=== PATIENT | male | born 1975 | race Caucasian/White ===

== ENCOUNTER → 2019-05-27 | Outpatient (CLI) | payer BC, SELFPAY ==
[2019-05-27 13:07] LABS: CRP, High Sensitivity Cardiac 0.54 mg/L
[2019-05-28 14:58] LABS: CHOLESTEROL TOTAL 245 mg/dL (100-199); HDL-C 43 mg/dL (>39); HDL-P TOTAL 35.5 umol/L (>=30.5); SMALL LDL-P 1386 nmol/L (<=527); TRIGLYCERIDES 148 mg/dL (0-149)
[2019-05-28 15:42] LABS: INSULIN RESISTANCE SCORE 76 (<=45); LDL SIZE 20.6 nm (>20.5); LDL-C 172 mg/dL (0-99); LDL-P 2264 nmol/L (<1000)
== END | disposition home or self-care (01) ==
LOC: MFPLAB 10:19
PROVIDERS: Family Provider Family Medicine; PCP Family Medicine; Referring Provider Family Medicine; Visit Provider Family Medicine
DX: E78.5 Hyperlipidemia, unspecified (principal)
CPT/HCPCS: 36415; 80061; 83704; 86141

== ENCOUNTER → 2019-08-07 08:25 | Outpatient (CLI) | payer OTHER, SELFPAY ==
[2019-08-07 10:01] LABS: AST(SGOT) 21 U/L (15-37); Alanine Aminotransfer ALT/SGPT 38 U/L (16-61); Albumin, Serum 4.1 g/dL (3.2-5.0); Alkaline Phosphatase 42 U/L (45-117); Bilirubin, Direct 0.11 mg/dL (0.00-0.30); Cholesterol 212 mg/dL (200); Globulin 3.3 g/dL (2.2-4.2); High Density Lipoprotein 38 mg/dL; Protein, Total 7.4 g/dL (6.4-8.2); Triglycerides 377 mg/dL; Very Low Density Lipoprotein 75 mg/dL (5-40)
== END ==
PROVIDERS: PCP Family Medicine; Referring Provider Family Medicine; Visit Provider Family Medicine
DX: E78.5 Hyperlipidemia, unspecified (principal)
CPT/HCPCS: 36415; 80061; 80076

== ENCOUNTER → 2020-02-04 | Outpatient (CLI) | payer OTHER, SELFPAY ==
[2020-02-04 11:19] LABS: AST(SGOT) 19 U/L (15-37); Alanine Aminotransfer ALT/SGPT 36 U/L (16-61); Albumin, Serum 3.8 g/dL (3.2-5.0); Alkaline Phosphatase 48 U/L (45-117); Bilirubin, Direct 0.12 mg/dL (0.00-0.30); Cholesterol 203 mg/dL (200); Globulin 3.3 g/dL (2.2-4.2); High Density Lipoprotein 34 mg/dL; Protein, Total 7.1 g/dL (6.4-8.2); Triglycerides 455 mg/dL
== END | disposition home or self-care (01) ==
LOC: MTLAB 07:12
PROVIDERS: PCP Family Medicine; Referring Provider Family Medicine; Visit Provider Family Medicine
DX: E78.5 Hyperlipidemia, unspecified (principal)
CPT/HCPCS: 36415; 80061; 80076

== ENCOUNTER → 2020-12-06 09:39 | Outpatient (CLI) | payer OTHER, SELFPAY ==
[2020-12-06 13:13] LABS: ALB/GLOB Ratio 1.2 RATIO (0.9-2.4); AST(SGOT) 23 U/L (15-37); Alanine Aminotransfer ALT/SGPT 30 U/L (16-61); Albumin, Serum 4.1 g/dL (3.2-5.0); Alkaline Phosphatase 45 U/L (45-117); Anion Gap 5 (5-15); BUN 16 mg/dL (7-18); BUN/Creat Ratio 16.5 RATIO (10-20); Calcium,Total 8.8 mg/dL (8.5-10.1); Chloride 105 mmol/L (98-107); Cholesterol 205 mg/dL (200); Creatinine, Serum 0.97 mg/dL (0.70-1.30); EST Glomerular Filtration Rate 90 mL/min (>60); Est Glom Filt Rate - Afr Amer 108 mL/min (>60); Globulin 3.4 g/dL (2.2-4.2); Glucose 89 mg/dL (74-106); High Density Lipoprotein 55 mg/dL; Potassium 3.9 mmol/L (3.5-5.1); Protein, Total 7.5 g/dL (6.4-8.2); Sodium Level 138 mmol/L (136-145); Thyroid Stim Hormone (TSH) 1.55 uIU/mL (0.358-3.74); Triglycerides 129 mg/dL; Very Low Density Lipoprotein 26 mg/dL (5-40)
== END ==
PROVIDERS: PCP Family Medicine; Visit Provider Family Medicine
DX: E78.1 Pure hyperglyceridemia (principal)
CPT/HCPCS: 36415; 80053; 80061; 84443

== ENCOUNTER 2021-03-08 23:46 | Emergency (ER) | payer OTHER, SELFPAY ==
--- NOTE | 2021-03-08 00:16 | RAD_ITS ---
STUDY: X-RAY CHEST REASON FOR EXAM: Male, 45 years old. chest pain TECHNIQUE: AP portable COMPARISON: None. FINDINGS: The lungs are clear and expanded. There is no demonstrated pleural abnormality. Normal size heart. Normal mediastinum and delmis. Normal visualized pulmonary arteries. Normal visualized aortic arch and descending thoracic aorta. Normal visualized thoracic spine. Normal visualized ribs, clavicles, and shoulders. There is no demonstrated abnormality of the visualized soft tissue structures of the upper abdomen. RAD/Chest 1 View (Portable) IMPRESSION: Normal x-ray examination of the chest. Electronically Signed: Agapito Olivas MD at 0:44 EDT Tel , Service support ,
[2021-03-08 23:47] VITALS: BP 149/83; PULSE 77; RESP 16; TEMP 36.3; O2SAT 97; BMI 33.7
--- NOTE | 2021-03-08 23:53 | EKG12_ITS ---
Test Reason : CP Blood Pressure : / mmHG Vent. Rate : 073 BPM Atrial Rate : 073 BPM P-R Int : 146 ms QRS Dur : 074 ms QT Int : 358 ms P-R-T Axes : 040 021 023 degrees QTc Int : 394 ms Normal sinus rhythm Normal ECG Confirmed by LISSET CARRIZALES, MANFRED ([id number]), offline editor TEO STONE ([id number]) on 03/14/2021 8:33:09 AM Referred By: ANÍBAL Confirmed By:MANFRED DARLING MD
--- NOTE | 2021-03-09 00:21 | ED.VIS.CHEST ---
HPI History of Present Illness Chief Complaint: Chest Pain Narrative Narrative: 45-year-old male with history of hyperlipidemia presenting with right-sided chest pain. He states this started prior to arrival and radiated to his right arm. He felt nauseous and lightheaded as well as a little bit sweaty. He states when he is at rest he does not have significant pain. He complains of pain with movement. Patient has no cardiac history. Patient states he does have a family history of early cardiac disease in the 50s. Patient has no history of DVT/PE. Patient does have a history of recent travel in December to [facility]. He states that initially went biplane however they did also drive around 2 different areas. He states that he spent several hours in the car in between places where he would hike. He does admit to hiking a lot. 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 PFSH PFSH Medical History Alcohol abuse Hyperlipidemia Non-smoker Home Medications fenofibrate 80 mg PO DAILY 03/08/21 [History Last Taken Unknown] Allergy/AdvReac Type Severity Reaction Status Date / Time No Known Allergies Allergy Verified 03/08/21 23:50 Social History Smoking Status: Never smoker ROS [facility] ED Constitutional Constitutional ED: Reports sweats; Denies chills or fever(s) Eyes Eyes: Denies blurry vision or change in vision ENT ENT ED: Denies rhinorrhea or sore throat Cardiovascular Cardiovascular: Reports chest pain, palpitations and racing heartbeat Respiratory/Chest Respiratory/Chest: Denies cough or dyspnea Gastrointestinal Gastrointestinal: Reports nausea; Denies abdominal pain or vomiting Genitourinary Genitourinary ED: Denies dysuria or hematuria Musculoskeletal Musculoskeletal: Denies arthralgias or myalgias Integumentary Denies abscess or rash Neurologic Neurologic: Denies headache(s) or paresthesias Psychiatric Psychiatric: Denies anxiety or depression EXAM Physical Exam Const Vital Signs: 03/08/21 23:47 03/08/21 23:51 03/09/21 01:58 Temperature 97.4 F L Temperature Source Temporal Pulse Rate 77 61 Respiratory Rate 16 14 Respiratory Effort Normal Blood Pressure 149/83 H 131/75 H Blood Pressure Mean 105 93 Pulse Ox 97 96 Oxygen Delivery Method Room Air Room Air 03/09/21 02:08 03/09/21 02:40 Temperature Temperature Source Pulse Rate 65 80 Respiratory Rate 14 16 Respiratory Effort Blood Pressure 127/68 H 126/64 H Blood Pressure Mean 87 Pulse Ox 96 96 Oxygen Delivery Method Room Air Positive well nourished General Appearance ED: NAD; Negative for pallor HEENT Reports moist mucous membranes normocephalic and atraumatic Eyes PERRL and EOMs intact bilaterally Resp normal respiratory effort Effort and Inspection: respiratory distress Cardio regular rate and regular rhythm GI normal to inspection, nondistended, normoactive bowel sounds Neuro oriented x3 Sensorium / Orientation: awake and alert Psych mental status grossly normal Skin no rashes or lesions noted and no wounds General Skin Exam: Negative for jaundice or pallor Heart Score History: Moderately Suspicious ECG: Normal Age: </= 45 years Risk Factors: 1 or 2 Risk Factors Score: 2 MDM MDM MDM Narrative Medical decision making narrative: Patient presenting with right-sided chest pain and radiation to the right arm. This occurred at rest. He admits to being lightheaded, nauseous, diaphoretic. He arrived by EMS and was given aspirin prior to arrival. EKG on my interpretation shows normal sinus rhythm ventricular rate of 73 bpm without signs of ischemic changes. Heart score pretesting is 2. Patient states he is currently pain-free and resting in bed. He declines analgesia. Chest x-ray on my interpretation shows no acute cardiopulmonary process and the radiologist does agree. Vital signs appear stable. While I was examining the patient his pulse ox did drop to 93% with good waveforms. I will obtain a cardiac work-up with D-dimer. Basic lab work is checked and is within normal limits. Troponin initially is 4.3 and delta troponin is 4.9. D-dimer is negative. Patient declined anything for pain but was given aspirin. He states his symptoms are improved currently. I counseled him that he had a negative work-up for cardiac sources as well as pulmonary emboli. He is comfortable with outpatient follow-up with his PCP. He is given return precautions. Impression: 1. Chest pain noncardiac Lab Data Labs: Laboratory Results - last 24 hr 03/08/21 03/08/21 03/09/21 23:52 23:52 01:40 WBC 5.2 RBC 5.05 Hgb 14.6 Hct 42.9 MCV 85.0 MCH 28.9 MCHC 34.0 RDW Std Deviation 38.3 RDW Coeff of Christa 12.5 Plt Count 218 MPV 9.6 Immature Gran % (Auto) 0.600 Neut % (Auto) 54.6 Lymph % (Auto) 34.4 Florence % (Auto) 7.7 Eos % (Auto) 2.3 Baso % (Auto) 0.4 Absolute Neuts (auto) 2.8 Absolute Lymphs (auto) 1.78 Nucleated RBC % 0 D-Dimer Quant (PE/DVT) <= 0.27 Sodium 139 Potassium 3.5 Chloride 105 Carbon Dioxide 26.0 Anion Gap 8 BUN 13 Creatinine 1.12 Estim Creat Clear Calc 73.98 Est GFR (MDRD) Af Amer 92 Est GFR (MDRD) Non-Af 76 BUN/Creatinine Ratio 11.6 Glucose 137 H Calcium 8.5 Troponin I High Sens 4.3 03/09/21 02:04 WBC RBC Hgb Hct MCV MCH MCHC RDW Std Deviation RDW Coeff of Christa Plt Count MPV Immature Gran % (Auto) Neut % (Auto) Lymph % (Auto) Florence % (Auto) Eos % (Auto) Baso % (Auto) Absolute Neuts (auto) Absolute Lymphs (auto) Nucleated RBC % D-Dimer Quant (PE/DVT) Sodium Potassium Chloride Carbon Dioxide Anion Gap BUN Creatinine Estim Creat Clear Calc Est GFR (MDRD) Af Amer Est GFR (MDRD) Non-Af BUN/Creatinine Ratio Glucose Calcium Troponin I High Sens 4.9 Radiography Diagnostic Testing: Radiology Impression Chest X-Ray 03/08/21 00:16 IMPRESSION: Normal x-ray examination of the chest. Electronically Signed: Agapito Olivas MD at 0:44 EDT Tel , Service support , Discharge Plan Triage Chief Complaint: Chest Pain ED Provider: Collins Buenrostro Dx/Rx/DC Orders Instructions: ED Chest Pain, Noncardiac Prescriptions: No Action fenofibrate 40 mg Tablet 80 mg PO DAILY RF: 0 Primary Care Provider: Lion Marino Referrals: Lion Marino MD [Primary Care Provider] - Disposition Disposition: Home, Self Care Discharge Date/Time: 03/09/21 02:44
[2021-03-09 00:23] LABS: Anion Gap 8 (5-15); BUN 13 mg/dL (7-18); BUN/Creat Ratio 11.6 RATIO (10-20); Calcium,Total 8.5 mg/dL (8.5-10.1); Chloride 105 mmol/L (98-107); Creatinine, Serum 1.12 mg/dL (0.70-1.30); EST Glomerular Filtration Rate 76 mL/min (>60); Est Glom Filt Rate - Afr Amer 92 mL/min (>60); Estimated Creatinine Clearance 73.98 ml/min; Glucose 137 mg/dL (74-106); Potassium 3.5 mmol/L (3.5-5.1); Sodium Level 139 mmol/L (136-145); Troponin-I HS 4.3 pg/mL (3.0-78.5)
[2021-03-09 00:27] LABS: Absolute Lymphocyte Count 1.78 X10^3/uL (0.83-4.51); Absolute Neutrophil Count 2.8 X10^3/uL (2.0-7.7); Basophil# 0.02 X10^3/uL; Basophil% 0.4 % (0-1); Eosinophil# 0.12 X10^3/uL; Eosinophils% 2.3 % (0-5); Hematocrit 42.9 % (40-54); Hemoglobin 14.6 g/dL (13.0-16.5); Lymphocyte # 1.78 X10^3/ul (0.83-4.51); Lymphocyte % 34.4 % (19-41); Mean Corpuscular Hgb 28.9 pg (27.0-32.0); Mean Platelet Vol. 9.6 fl (6.2-12.0); Monocyte% 7.7 % (0-10); NRBC Flagged by Analyzer 0 % (0-5); Neutrophil # 2.83 X10^3/uL (2.7-7.7); Neutrophil % 54.6 % (47-70); Platelet Count 218 K/mm3 (150-450); RBC Distribution Width CV 12.5 % (11.6-14.6); RBC Distribution Width SD 38.3 fl (35.1-43.9); Red Blood Count 5.05 M/mm3 (4.6-6.2); White Blood Count 5.2 K/mm3 (4.4-11.0)
[2021-03-09 01:58] VITALS: BP 131/75; PULSE 61; RESP 14; O2SAT 96
[2021-03-09 02:03] LABS: D-Dimer Quantitative (DVT/PE) <= 0.27 FEU/ug/m (0.27-0.49)
[2021-03-09 02:08] VITALS: BP 127/68; PULSE 65; RESP 14; O2SAT 96
[2021-03-09 02:35] LABS: Troponin-I HS 4.9 pg/mL (3.0-78.5)
[2021-03-09 02:40] VITALS: BP 126/64; PULSE 80; RESP 16; O2SAT 96
== END 2021-03-09 02:44 | disposition home or self-care (01) ==
PROVIDERS: Emergency Provider Student in an Organized Health Care Education/Training Program; PCP Family Medicine
DX: R07.89 Other chest pain (principal); E78.5 Hyperlipidemia, unspecified; Z79.899 Other long term (current) drug therapy
CPT/HCPCS: 71045; 80048; 84484; 85025; 85379; 93005; 99285; A4216

== ENCOUNTER → 2021-04-08 06:16 | Outpatient (CLI) | payer OTHER, SELFPAY ==
--- NOTE | 2021-04-08 14:30 | STRESSREP_ITS ---
Stress Test Report Exercise myocardial perfusion stress test. 45-year-old man with a history of chest pain. Stress protocol: Resting EKG demonstrates normal sinus rhythm with a rate of 68 bpm normal intervals are noted resting blood pressure is 124/88 mmHg. The patient exercised according to regular Ren protocol for a total duration of 10 minutes and 31 seconds. The maximum heart rate attained was 181 bpm which was 102% of max infected heart rate. Patient completed 1 minute and 30 seconds into stage IV of the Ren protocol. At rest there were no ST or T wave changes noted to suggest ischemia and at peak exercise no ST or T wave changes were noted suggest ischemia. No clinical angina was noted. Test was terminated due to the target heart rate being achieved. The peak blood pressure was 190/82 mmHg. Myocardial perfusion protocol. 12.0 mCi of technetium 99m sestamibi was injected at rest. The patient exercised regular Ren protocol and at peak exercise 35.0 mCi of technetium 99m sestamibi was injected. Stress and resting images were reconstructed and compared in the short axis vertical long and horizontal long axis. Gated images were also obtained. Perfusion SPECT analysis: Review of the images demonstrate normal uptake of tracer noted in all areas of the myocardium. The resting images similarly demonstrate normal uptake of t racer noted in all areas of the myocardium. No areas of reversibility are noted to suggest ischemia and no previous infarct is noted. Gated SPECT analysis: The gated ejection fraction is 70%. Conclusion: Normal exercise myocardial perfusion stress test. Preserved ejection fraction.
== END ==
PROVIDERS: PCP Family Medicine; Referring Provider Family Medicine; Visit Provider Family Medicine
DX: R07.89 Other chest pain (principal)
CPT/HCPCS: 78452; 93017; A9500; A4216

== ENCOUNTER 2021-09-27 07:45 | Outpatient (CLI) | payer OTHER, SELFPAY ==
[2021-09-27 10:43] LABS: AST(SGOT) 25 U/L (15-37); Alanine Aminotransfer ALT/SGPT 41 U/L (16-61); Albumin, Serum 3.9 g/dL (3.2-5.0); Alkaline Phosphatase 45 U/L (45-117); Cholesterol 201 mg/dL (200); Globulin 3.4 g/dL (2.2-4.2); High Density Lipoprotein 34 mg/dL; Protein, Total 7.3 g/dL (6.4-8.2); Triglycerides 542 mg/dL
== END 2021-09-27 23:59 | disposition home or self-care (01) ==
LOC: MTLAB 07:46
PROVIDERS: PCP Family Medicine; Referring Provider Family Medicine; Visit Provider Family Medicine
DX: E78.1 Pure hyperglyceridemia (principal)
CPT/HCPCS: 36415; 80061; 80076

== ENCOUNTER → 2022-05-29 | Outpatient (CLI) | payer OTHER, SELFPAY ==
[2022-05-29 13:15] LABS: AST(SGOT) 32 U/L (15-37); Alanine Aminotransfer ALT/SGPT 54 U/L (16-61); Alkaline Phosphatase 49 U/L (45-117); Bilirubin, Direct 0.17 mg/dL (0.00-0.30); Cholesterol 197 mg/dL (200); Globulin 3.6 g/dL (2.2-4.2); High Density Lipoprotein 40 mg/dL; Protein, Total 7.6 g/dL (6.4-8.2); Triglycerides 604 mg/dL
== END | disposition home or self-care (01) ==
LOC: MFPLAB 09:31
PROVIDERS: PCP Family Medicine; Referring Provider Family Medicine; Visit Provider Family Medicine
DX: E78.5 Hyperlipidemia, unspecified (principal)
CPT/HCPCS: 36415; 80061; 80076

== ENCOUNTER → 2023-06-07 | Outpatient (CLI) | payer BC, SELFPAY ==
[2023-06-07 10:38] LABS: ALB/GLOB Ratio 1.1 RATIO (0.9-2.4); AST(SGOT) 24 U/L (15-37); Alanine Aminotransfer ALT/SGPT 41 U/L (16-61); Alkaline Phosphatase 49 U/L (45-117); Anion Gap 4 (5-15); BUN 11 mg/dL (7-18); BUN/Creat Ratio 9.8 RATIO (10-20); Calcium,Total 9.3 mg/dL (8.5-10.1); Chloride 105 mmol/L (98-107); Cholesterol 199 mg/dL (200); Creatinine, Serum 1.12 mg/dL (0.70-1.30); EST Glomerular Filtration Rate 75 mL/min (>60); Est Glom Filt Rate - Afr Amer 91 mL/min (>60); Globulin 3.5 g/dL (2.2-4.2); Glucose 104 mg/dL (74-106); High Density Lipoprotein 37 mg/dL; Potassium 3.9 mmol/L (3.5-5.1); Protein, Total 7.5 g/dL (6.4-8.2); Sodium Level 140 mmol/L (136-145); Thyroid Stim Hormone (TSH) 1.57 uIU/mL (0.358-3.74); Triglycerides 352 mg/dL; Very Low Density Lipoprotein 70 mg/dL (5-40)
== END | disposition home or self-care (01) ==
PROVIDERS: PCP Family Medicine; Referring Provider Family Medicine; Visit Provider Family Medicine
DX: E78.5 Hyperlipidemia, unspecified (principal)
CPT/HCPCS: 36415; 80053; 80061; 84443

== ENCOUNTER → 2024-03-25 | Outpatient (CLI) | payer BC, SELFPAY ==
--- NOTE | 2024-03-25 09:15 | RAD_ITS ---
STUDY: X-RAY - RIGHT HAND REASON FOR EXAM: Male, 48 years old. Pain, swelling. TECHNIQUE: 3 views of the right hand. COMPARISON: None. FINDINGS: Normal radiocarpal articulation. Normal distal radioulnar joint. Normal visualized carpal bones. Normal carpal articulations. Normal carpometacarpal articulation of the thumb. Normal second through fifth carpometacarpal joints. Normal metacarpi. Normal metacarpophalangeal joint of the thumb. Normal interphalangeal joint of the thumb. Normal proximal and distal phalanges of the thumb. Normal metacarpophalangeal joints of the second through fifth fingers. Normal proximal and distal interphalangeal joints of the second through fifth fingers. Normal phalanges of the second through fifth fingers. The soft tissue structures are unremarkable. RAD/Hand Min 3 Views IMPRESSION: Unremarkable x-ray examination of the hand. Electronically Signed: Du Storey MD at 9:47 EDT ,
[2024-03-25 12:31] LABS: Absolute Neutrophil Count 2.7 X10^3/uL (2.0-7.7); Basophil# 0.04 X10^3/uL; Basophil% 0.9 % (0-1); Eosinophil# 0.09 X10^3/uL; Eosinophils% 1.9 % (0-5); Hematocrit 41.9 % (40-54); Hemoglobin 14.1 g/dL (13.0-16.5); Mean Corp Hgb Conc 33.7 g/dL (32-36); Mean Corpuscular Hgb 28.7 pg (27.0-32.0); Mean Corpuscular Volume 85.2 fL (80-94); Mean Platelet Vol. 10.4 fl (6.2-12.0); Monocyte# 0.47 X10^3/uL; Monocyte% 10.1 % (0-10); NRBC Flagged by Analyzer 0 % (0-5); Neutrophil # 2.71 X10^3/uL (2.7-7.7); Neutrophil % 58.5 % (47-70); Platelet Count 256 K/mm3 (150-450); RBC Distribution Width CV 12.2 % (11.6-14.6); RBC Distribution Width SD 37.7 fl (35.1-43.9); Red Blood Count 4.92 M/mm3 (4.6-6.2); White Blood Count 4.6 K/mm3 (4.4-11.0)
[2024-03-25 12:33] LABS: Erythrocyte Sedimentation Rate 7 mm/hr (0-20)
[2024-03-25 12:44] LABS: ALB/GLOB Ratio 1.3 RATIO (0.9-2.4); AST(SGOT) 18 U/L (15-37); Alanine Aminotransfer ALT/SGPT 37 U/L (16-61); Albumin, Serum 3.9 g/dL (3.2-5.0); Alkaline Phosphatase 47 U/L (45-117); Anion Gap 4 (5-15); BUN 11 mg/dL (7-18); BUN/Creat Ratio 11.1 RATIO (10-20); CRP < 2.90 mg/L (0.0-3.0); Calcium,Total 9.4 mg/dL (8.5-10.1); Chloride 105 mmol/L (98-107); Cholesterol 149 mg/dL (200); Creatinine, Serum 0.99 mg/dL (0.70-1.30); EST Glomerular Filtration Rate 86 mL/min (>60); Est Glom Filt Rate - Afr Amer 104 mL/min (>60); Globulin 3.1 g/dL (2.2-4.2); Glucose 100 mg/dL (74-106); High Density Lipoprotein 37 mg/dL; Potassium 4.1 mmol/L (3.5-5.1); Rheumatoid Factor < 10.0 IU/mL (<15); Sodium Level 139 mmol/L (136-145); Thyroid Stim Hormone (TSH) 0.716 uIU/mL (0.358-3.740); Triglycerides 183 mg/dL; Uric Acid 7.5 mg/dL (3.5-7.2); Very Low Density Lipoprotein 37 mg/dL (5-40)
[2024-03-26 14:09] LABS: ANTINUCLEAR ANTIBODIES DIRECT Negative (Negative)
== END | disposition home or self-care (01) ==
PROVIDERS: PCP Family Medicine; Referring Provider Family Medicine; Visit Provider Family Medicine
DX: R10.9 Unspecified abdominal pain (principal); E78.5 Hyperlipidemia, unspecified; M79.643 Pain in unspecified hand; M79.89 Other specified soft tissue disorders
CPT/HCPCS: 36415; 73130; 80053; 80061; 84443; 84550; 85025; 85652; 86038; 86140; 86431

== ENCOUNTER → 2025-01-16 | Outpatient (CLI) | payer BC, SELFPAY ==
--- OUTSIDE RECORDS SUMMARY | 2025-01-16 07:02 | XMS RPT_ITS | CCD ---
Author Organization [facility] Care Team Providers Care Contract Negotiation Manager Name Role Phone Agapito Marrero Attending Unavailable Agapito Marrero Referring Unavailable Agapito Marrero Primary Care Unavailable Agapito Marrero Attending Unavailable Agapito Marrero Referring Unavailable Agapito Marrero Primary Care Unavailable Medications Current Medications Medication Drug Class(es) Dates Sig (Normalized) Sig (Original) fenofibrate 40 mg oral tablet (2 sources) Peroxisome Proliferator Receptor alpha Agonist Start: 03-08-2021 take 80 mg by mouth once daily Fenofibrate Active 80 MG PO DAILY March 07, 2021 11:00pm Problems Problem Classification Problem Date Documented Da te Episodic/Chronic Abdominal pain (1 source) Unspecified abdominal pain; Translations: [Unspecified abdominal pain] Onset: 04-11-2024 Episodic Disorders of lipid metabolism (1 source) Hyperlipidemia, unspecified; Translations: [Hyperlipidemia, unspecified] Onset: 2023 Chronic Results Test Name Value Interpretation Reference Range Facility ANTINUCLEAR ANTIBODIES DIREC Ton 03-26-2024 ALVINO,DIRECT Negative Normal Negative [facility] Comment on above: Order Comment: Order Date: 06/05/23 Order Info: 0786-1 - CMP Order Info: [id number] - LIPID Order Info: 3016-3 - TSH Result Comment: Perf ormed at: CB - [facility] [address] [id number] Market Master: Darrel Barrera PhD, Phone: [phone] Performed By: #### L 067.7991, P562.5907 #### [facility] [address] [place], [address] CBC W/Diff, Automatedon 090 Absolute Lymph 1.30 X10 3/uL Normal 0.83-4.51 [facility] Comment on above: Order Comment: Order Date: 03/20/24 Order Info: 183-07 - CBCD Order Info: 05413-2 - SED Performed By: #### L 500.4050, L3100.5475, L101.9900, L501.6710, L501.9520, L505.7010, L501.1400, L500.4100, L100.0100 #### [facility] [address] [place], [address] Absolute Neut 2.7 X10 3/uL Normal 2.0-7.7 [facility] Comment on above: Order Comment: Order Date: 03/20/24 Order Info: 183-07 - CBCD Order Info: 45153-0 - SED Performed By: #### L 500.4050, L3100.5475, L101.9900, L501.6710, L501.9520, L505.7010, L501.1400, L500.4100, L100.0100 #### [facility] [address] [place], [place], [phone] ([phone] Basophils/100 WBC (Bld) 0.9 % Normal 0-1 [facility] Comment on above: Order Comment: Order Date: 03/20/24 Order Info: 183-07 - CBCD Order Info: 11786-9 - SED Performed By: #### L 500.4050, L3100.5475, L101.9900, L501.6710, L501.9520, L505.7010, L501.1400, L500.4100, L100.0100 #### [facility] [address] [place], [address] Eosinophils/100 WBC (Bld) 1.9 % Normal 0-5 [facility] Comment on above: Order Comment: Order Date: 03/20/24 Order Info: 183-07 - CBCD Order Info: 22025-8 - SED Performed By: #### L 500.4050, L3100.5475, L101.9900, L501.6710, L501.9520, L505.7010, L501.1400, L500.4100, L100.0100 #### [facility] [address] [place], [address] Erythrocyte distribution width (RBC) [Ratio] 12.2 % Normal 11.6-14.6 [facility] Comment on above: Order Comment: Order Date: 03/20/24 Order Info: 183-07 - CBCD Order Info: 13943-6 - SED Performed By: #### L 500.4050, L3100.5475, L101.9900, L501.6710, L501.9520, L505.7010, L501.1400, L500.4100, L100.0100 #### [facility] [address] [place], [address] Hematocrit (Bld) [Volume fraction] 41.9 % Normal 40-54 [facility] Comment on above: Order Comment: Order Date: 03/20/24 Order Info: 183-07 - CBCD Order Info: 78506-7 - SED Performed By: #### L 500.4050, L3100.5475, L101.9900, L501.6710, L501.9520, L505.7010, L501.1400, L500.4100, L100.0100 #### [facility] [address] [place], [place], [phone] (763) Hemoglobin (Bld) [Mass/Vol] 14.1 g/dL Normal 13.0-16.5 [facility] Comment on above: Order Comment: Order Date: 03/20/24 Order Info: 01810-21 - CBCD Order Info: 96063-6 - SED Performed By: #### L 500.4050, L3100.5475, L101.9900, L501.6710, L501.9520, L505.7010, L501.1400, L500.4100, L100.0100 #### [facility] [address] [place], [address] IG% 0.600 Normal 0.0-0.9 [facility] Comment on above: Order Comment: Order Date: 03/20/24 Order Info: 01810-21 - CBCD Order Info: 76893-4 - SED Result Comment: IG% - Immature Granulocytes (promyelocytes, myelocytes and metamyelocytes) > 1% indicates that a LEFT SHIFT is Present. Performed By: #### L 500.4050, L3100.5475, L101.9900, L501.6710, L501.9520, L505.7010, L501.1400, L500.4100, L100.0100 #### [facility] [address] [place], [address] Lymphocytes/100 WBC (Bld) 28.0 % Normal 19-41 [facility] Comment on above: Order Comment: Order Date: 03/20/24 Order Info: 183-07 - CBCD Order Info: 07353-3 - SED Performed By: #### L 500.4050, L3100.5475, L101.9900, L501.6710, L501.9520, L505.7010, L501.1400, L500.4100, L100.0100 #### [facility] [address] [place], [address] MCH (RBC) [Entitic mass] 28.7 pg Normal 27.0-32.0 [facility] Comment on above: Order Comment: Order Date: 03/20/24 Order Info: 01810-21 - CBCD Order Info: 35189-9 - SED Performed By: #### L 500.4050, L3100.5475, L101.9900, L501.6710, L501.9520, L505.7010, L501.1400, L500.4100, L100.0100 #### [facility] [address] [place], [address] MCHC (RBC) [Mass/Vol] 33.7 g/dL Normal 32-36 [facility] Comment on above: Order Comment: Order Date: 03/20/24 Order Info: 183-07 - CBCD Order Info: 59038-2 - SED Performed By: #### L 500.4050, L3100.5475, L101.9900, L501.6710, L501.9520, L505.7010, L501.1400, L500.4100, L100.0100 #### [facility] [address] [place], [address] MCV (RBC) [Entitic vol] 85.2 fL Normal 80-94 [facility] Comment on above: Order Comment: Order Date: 03/20/24 Order Info: 183-07 - CBCD Order Info: 82039-8 - SED Performed By: #### L 500.4050, L3100.5475, L101.9900, L501.6710, L501.9520, L505.7010, L501.1400, L500.4100, L100.0100 #### [facility] [address] [place], [address] Monocytes/100 WBC (Bld) 10.1 % High 0-10 [facility] Comment on above: Order Comment: Order Date: 03/20/24 Order Info: 183-07 - CBCD Order Info: 74492-0 - SED Performed By: #### L 500.4050, L3100.5475, L101.9900, L501.6710, L501.9520, L505.7010, L501.1400, L500.4100, L100.0100 #### [facility] [address] [place], [address] Neutrophils/100 WBC (Bld) 58.5 % Normal 47-70 [facility] Comment on above: Order Comment: Order Date: 03/20/24 Order Info: 01810-21 - CBCD Order Info: 43513-3 - SED Performed By: #### L 500.4050, L3100.5475, L101.9900, L501.6710, L501.9520, L505.7010, L501.1400, L500.4100, L100.0100 #### [facility] [address] [place], [address] Nucleated RBC (Bld) [#/Vol] 0 10*3/uL Normal 0-5 [facility] Comment on above: Order Comment: Order Date: 03/20/24 Order Info: 018- - CBCD Order Info: 44075-8 - SED Performed By: #### L 500.4050, L3100.5475, L101.9900, L501.6710, L501.9520, L505.7010, L501.1400, L500.4100, L100.0100 #### [facility] [address] [place], [place], [phone] (140) Platelet mean volume (Bld) [Entitic vol] 10.4 fL Normal 6.2-12.0 [facility] Comment on above: Order Comment: Order Date: 03/20/24 Order Info: 018- - CBCD Order Info: 29114-8 - SED Performed By: #### L 500.4050, L3100.5475, L101.9900, L501.6710, L501.9520, L505.7010, L501.1400, L500.4100, L100.0100 #### [facility] [address] [place], [address] Platelets (Bld) [#/Vol] 256 10*3/uL Normal 150-450 [facility] Comment on above: Order Comment: Order Date: 03/20/24 Order Info: 0184- - CBCD Order Info: 84093-2 - SED Performed By: #### L 500.4050, L3100.5475, L101.9900, L501.6710, L501.9520, L505.7010, L501.1400, L500.4100, L100.0100 #### [facility] [address] [place], [place], [phone] RBC (Bld) [#/Vol] 4.92 10*6/uL Normal 4.6-6.2 [facility] Comment on above: Order Comment: Order Date: 03/20/24 Order Info: 183-07 - CBCD Order Info: 76697-9 - SED Performed By: #### L 500.4050, L3100.5475, L101.9900, L501.6710, L501.9520, L505.7010, L501.1400, L500.4100, L100.0100 #### [facility] [address] [place], [place], [phone] RDW SD 37.7 fl Normal 35.1-43.9 [facility] Comment on above: Order Comment: Order Date: 03/20/24 Order Info: 183-07 - CBCD Order Info: 82337-7 - SED Performed By: #### L 500.4050, L3100.5475, L101.9900, L501.6710, L501.9520, L505.7010, L501.1400, L500.4100, L100.0100 #### [facility] [address] [place], [place], [phone] WBC (Bld) [#/Vol] 4.6 10*3/uL Normal 4.4-11.0 [facility] Comment on above: Order Comment: Order Date: 03/20/24 Order Info: 01810-21 - CBCD Order Info: 07304-5 - SED Performed By: #### L 500.4050, L3100.5475, L101.9900, L501.6710, L501.9520, L505.7010, L501.1400, L500.4100, L100.0100 #### [facility] [address] [place], [address] CRPon 03-25-2024 C-REACTIVE PROT < 2.90 Normal 0.0-3.0 [facility] Comment on above: Order Comment: Order Date: 03/20/24 Order Info: 0786-1 - CMP Order Info: 10987-5 - LIPID Order Info: 3083-07 - URIC Order Info: 08771-8 - CRP Order Info: 3015-09 - TSH Order Info: 98828-7 - RA Result Comment: C-Re active Protein (CRP) provides useful information for the diagnosis, therapy and monitoring of inflammatory processes and associated diseases. For the evaluation of Relative Risk for Cardiovascular Disease, a High Sensitivity CRP (HSCRP) should be ordered. Performed By: #### L 500.4050, L3100.5475, L101.9900, L501.6710, L501.9520, L505.7010, L501.1400, L500.4100, L100.0100 #### [facility] [address] [place], [place], [phone] Comprehensive Metabolic Prof ilon 03-25-2024 Albumin [Mass/Vol] 3.9 g/dL Normal 3.2-5.0 [facility] Comment on above: Order Comment: Order Date: 03/20/24 Order Info: 07- - CMP Order Info: - LIPID Order Info: 3083-07 - URIC Order Info: - CRP Order Info: 3015-09 - TSH Order Info: 83628-9 - RA Performed By: #### L 500.4050, L3100.5475, L101.9900, L501.6710, L501.9520, L505.7010, L501.1400, L500.4100, L100.0100 #### [facility] [address] [place], [address] Albumin/Globulin [Mass ratio] 1.3 {ratio} Normal 0.9-2.4 [facility] Comment on above: Order Comment: Order Date: 03/20/24 Order Info: 0786-1 - CMP Order Info: 85722-7 - LIPID Order Info: 3084-1 - URIC Order Info: 58038-5 - CRP Order Info: 3015-09 - TSH Order Info: 10325-1 - RA Performed By: #### L 500.4050, L3100.5475, L101.9900, L501.6710, L501.9520, L505.7010, L501.1400, L500.4100, L100.0100 #### [facility] [address] [place], [place], [phone] ALK P 47 U/L Normal 45-117 [facility] Comment on above: Order Comment: Order Date: 03/20/24 Order Info: 785- - CMP Order Info: - LIPID Order Info: 3083-07 - URIC Order Info: 23011-7 - CRP Order Info: 3 - TSH Order Info: 08650-2 - RA Performed By: #### L 500.4050, L3100.5475, L101.9900, L501.6710, L501.9520, L505.7010, L501.1400, L500.4100, L100.0100 #### [facility] [address] [place], [place], [phone] ALT [Catalytic activity/Vol] 37 U/L Normal 16-61 [facility] Comment on above: Order Comment: Order Date: 03/20/24 Order Info: 785-07 - CMP Order Info: - LIPID Order Info: 3083-07 - URIC Order Info: 40001-3 - CRP Order Info: 3 - TSH Order Info: 76940-7 - RA Performed By: #### L 500.4050, L3100.5475, L101.9900, L501.6710, L501.9520, L505.7010, L501.1400, L500.4100, L100.0100 #### [facility] [address] [place], [place], [phone] AST [Catalytic activity/Vol] 18 U/L Normal 15-37 [facility] Comment on above: Order Comment: Order Date: 03/20/24 Order Info: 785-1 - CMP Order Info: - LIPID Order Info: 3083-07 - URIC Order Info: 75419-1 - CRP Order Info: 3015-09 - TSH Order Info: 67773-1 - RA Performed By: #### L 500.4050, L3100.5475, L101.9900, L501.6710, L501.9520, L505.7010, L501.1400, L500.4100, L100.0100 #### [facility] [address] [place], [place], [phone] Bilirubin [Mass/Vol] 0.60 mg/dL Normal 0.20-1.00 [facility] Comment on above: Order Comment: Order Date: 03/20/24 Order Info: 785- - CMP Order Info: - LIPID Order Info: 3083-07 - URIC Order Info: 26672-7 - CRP Order Info: 3015-09 - TSH Order Info: 80831-1 - RA Result Comment: For patients on eltrombopag therapy, use of Dimension [place] TBIL is not recommended. Performed By: #### L 500.4050, L3100.5475, L101.9900, L501.6710, L501.9520, L505.7010, L501.1400, L500.4100, L100.0100 #### [facility] [address] [place], [place], [phone] (204) BUN/CRE 11.1 RATIO Normal 10-20 [facility] Comment on above: Order Comment: Order Date: 03/20/24 Order Info: 785-07 - CMP Order Info: - LIPID Order Info: 3083-07 - URIC Order Info: 29779-3 - CRP Order Info: 3015-09 - TSH Order Info: 97457-2 - RA Performed By: #### L 500.4050, L3100.5475, L101.9900, L501.6710, L501.9520, L505.7010, L501.1400, L500.4100, L100.0100 #### [facility] [address] [place], [place], [phone] (557) CA,Total 9.4 mg/dL Normal 8.5-10.1 [facility] Comment on above: Order Comment: Order Date: 03/20/24 Order Info: 785- - CMP Order Info: - LIPID Order Info: 3083-07 - URIC Order Info: 20999-2 - CRP Order Info: 3015-09 - TSH Order Info: 02326-3 - RA Performed By: #### L 500.4050, L3100.5475, L101.9900, L501.6710, L501.9520, L505.7010, L501.1400, L500.4100, L100.0100 #### [facility] [address] [place], [place], [phone] Chloride [Moles/Vol] 105 mmol/L Normal 98-107 [facility] Comment on above: Order Comment: Order Date: 03/20/24 Order Info: 785-07 - CMP Order Info: - LIPID Order Info: 3083-07 - URIC Order Info: 03652-9 - CRP Order Info: 3015-09 - TSH Order Info: 77527-9 - RA Performed By: #### L 500.4050, L3100.5475, L101.9900, L501.6710, L501.9520, L505.7010, L501.1400, L500.4100, L100.0100 #### [facility] [address] [place], [place], [address] (114) CO2 [Moles/Vol] 30.0 mmol/L Normal 21.0-32.0 [facility] Comment on above: Order Comment: Order Date: 03/20/24 Order Info: 785-07 - CMP Order Info: - LIPID Order Info: 3083-07 - URIC Order Info: 21627-8 - CRP Order Info: 3015-09 - TSH Order Info: 35648-7 - RA Performed By: #### L 500.4050, L3100.5475, L101.9900, L501.6710, L501.9520, L505.7010, L501.1400, L500.4100, L100.0100 #### [facility] [address] [place], [place], [phone] Creatinine [Mass/Vol] 0.99 mg/dL Normal 0.70-1.30 [facility] Comment on above: Order Comment: Order Date: 03/20/24 Order Info: 0786-1 - CMP Order Info: 27211-9 - LIPID Order Info: 3083-07 - URIC Order Info: 44334-3 - CRP Order Info: 3 - TSH Order Info: 86531-6 - RA Result Comment: The validity of the calculated GFR GFRAA in patients over 70 years has not been determined. Clinical correlation is essential. Performed By: #### L 500.4050, L3100.5475, L101.9900, L501.6710, L501.9520, L505.7010, L501.1400, L500.4100, L100.0100 #### [facility] [address] [place], [place], [phone] (790) EST GFR - AA 104 mL/min Normal >60 [facility] Comment on above: Order Comment: Order Date: 03/20/24 Order Info: 785- - CMP Order Info: - LIPID Order Info: 3083-07 - URIC Order Info: 18084-9 - CRP Order Info: 3 - TSH Order Info: 06681-1 - RA Result Comment: Afri can Citizen [place] GFR Calc Performed By: #### L 500.4050, L3100.5475, L101.9900, L501.6710, L501.9520, L505.7010, L501.1400, L500.4100, L100.0100 #### [facility] [address] [place], [place], [phone] (617) GAP 4 Low 5-15 [facility] Comment on above: Order Comment: Order Date: 03/20/24 Order Info: 0786-1 - CMP Order Info: 21111-6 - LIPID Order Info: 30810-21 - URIC Order Info: 71517-3 - CRP Order Info: 3 - TSH Order Info: 25637-0 - RA Performed By: #### L 500.4050, L3100.5475, L101.9900, L501.6710, L501.9520, L505.7010, L501.1400, L500.4100, L100.0100 #### [facility] [address] [place], [address] GFR/1.73 sq M.predicted among non-blacks MDRD (S/P/Bld) [Vol rate/Area] 86 mL/min/{1.73_m2} Normal >60 [facility] Comment on above: Order Comment: Order Date: 03/20/24 Order Info: 785- - CMP Order Info: - LIPID Order Info: 3083-07 - URIC Order Info: [id number] - CRP Order Info: 3015-09 - TSH Order Info: 94668-4 - RA Result Comment: Non- GFR Calc Performed By: #### L 500.4050, L3100.5475, L101.9900, L501.6710, L501.9520, L505.7010, L501.1400, L500.4100, L100.0100 #### [facility] [address] [place], [address] Globulin (S) [Mass/Vol] 3.1 g/dL Normal 2.2-4.2 [facility] Comment on above: Order Comment: Order Date: 03/20/24 Order Info: 785-07 - CMP Order Info: - LIPID Order Info: 3083-07 - URIC Order Info: 34673-1 - CRP Order Info: 3 - TSH Order Info: 06113-0 - RA Performed By: #### L 500.4050, L3100.5475, L101.9900, L501.6710, L501.9520, L505.7010, L501.1400, L500.4100, L100.0100 #### [facility] [address] [place], [address] Glucose [Mass/Vol] 100 mg/dL Normal 74-106 [facility] Comment on above: Order Comment: Order Date: 03/20/24 Order Info: 785- - CMP Order Info: - LIPID Order Info: 3083-07 - URIC Order Info: [id number] - CRP Order Info: 3015-09 - TSH Order Info: 15141-7 - RA Result Comment: Fast ing Glucose result from 100 to 125 mg/dL suggests IMPAIRED HOMEOSTASIS per A.D.A. criteria. Performed By: #### L 500.4050, L3100.5475, L101.9900, L501.6710, L501.9520, L505.7010, L501.1400, L500.4100, L100.0100 #### [facility] [address] [place], [address] Potassium [Moles/Vol] 4.1 mmol/L Normal 3.5-5.1 [facility] Comment on above: Order Comment: Order Date: 03/20/24 Order Info: 785-07 - CMP Order Info: - LIPID Order Info: 3083-07 - URIC Order Info: - CRP Order Info: 3015-09 - TSH Order Info: 20278-9 - RA Performed By: #### L 500.4050, L3100.5475, L101.9900, L501.6710, L501.9520, L505.7010, L501.1400, L500.4100, L100.0100 #### [facility] [address] [place], [address] Sodium [Moles/Vol] 139 mmol/L Normal 136-145 [facility] Comment on above: Order Comment: Order Date: 03/20/24 Order Info: 785-07 - CMP Order Info: - LIPID Order Info: 3083-07 - URIC Order Info: 81179-4 - CRP Order Info: 3 - TSH Order Info: 75974-8 - RA Performed By: #### L 500.4050, L3100.5475, L101.9900, L501.6710, L501.9520, L505.7010, L501.1400, L500.4100, L100.0100 #### [facility] [address] [place], [place], [phone] T PROT 7.0 g/dL Normal 6.4-8.2 [facility] Comment on above: Order Comment: Order Date: 03/20/24 Order Info: 07- - CMP Order Info: - LIPID Order Info: 3083-07 - URIC Order Info: [id number] - CRP Order Info: 3 - TSH Order Info: [id number] - RA Performed By: #### L 500.4050, L3100.5475, L101.9900, L501.6710, L501.9520, L505.7010, L501.1400, L500.4100, L100.0100 #### [facility] [address] [place], [place], [phone] Urea nitrogen [Mass/Vol] 11 mg/dL Normal 7-18 [facility] Comment on above: Order Comment: Order Date: 03/20/24 Order Info: 07 - CMP Order Info: - LIPID Order Info: 3083-07 - URIC Order Info: 69574-9 - CRP Order Info: 3015-09 - TSH Order Info: 54028-5 - RA Performed By: #### L 500.4050, L3100.5475, L101.9900, L501.6710, L501.9520, L505.7010, L501.1400, L500.4100, L100.0100 #### [facility] [address] [place], [address] Erythrocyte Sed Rateon 03-25 SED RATE 7 mm/hr Normal 0-20 [facility] Comment on above: Order Comment: Order Date: 03/20/24 Order Info: 0184-1 - CBCD Order Info: 11671-6 - SED Performed By: #### L 500.4050, L3100.5475, L101.9900, L501.6710, L501.9520, L505.7010, L501.1400, L500.4100, L100.0100 #### [facility] [address] [place], [place], [address] Hand Min 3 Viewson 4 Hand Min 3 Views [facility] [address] [place] [address] Hand Min 3 Views MR#: [id number] Acct: [id number] Name: INA ARZOLA Rep #: [id number] : 1975 M 48 From: Du Storey MD PCP: Dr. Agapito Marrero MD Status: REG CLI Study: Hand Min 3 Views Date of Exam: 03/25/24 Exam# [id number] Ordering Dr: Agapito Marrero [id number] STUDY: X-RAY - RIGHT HAND REASON FOR EXAM: Male, 48 years old. Pain, swelling. TECHNIQUE: 3 views of the right hand. COMPARISON: None. FINDINGS: Normal radiocarpal articulation. Normal distal radioulnar joint. Normal visualized carpal bones. Normal carpal articulations. Normal carpometacarpal articulation of the thumb. Normal second through fifth carpometacarpal joints. Normal metacarpi. Normal metacarpophalangeal joint of the thumb. Normal interphalangeal joint of the thumb. Normal proximal and distal phalanges of the thumb. Normal metacarpophalangeal joints of the second through fifth fingers. Normal proximal and distal interphalangeal joints of the second through fifth fingers. Normal phalanges of the second through fifth fingers. The soft tissue structures are unremarkable. RAD/Hand Min 3 Views IMPRESSION: Unremarkable x-ray examination of the hand. Electronically Signed: Du Storey MD at 9:47 EDT , CC: Dr. Agapito Marrero MD Graphic Design Professor: Signed Normal [facility] Lipid Profileon 03-25-2024 Cholesterol [Mass/Vol] 149 mg/dL Normal 200 [facility] Comment on above: Order Comment: Order Date: 03/20/24 Order Info: 0786- - CMP Order Info: - LIPID Order Info: 3083-07 - URIC Order Info: 18332-1 - CRP Order Info: 3 - TSH Order Info: 82387-0 - RA Result Comment: <200 mg/dL Desirable 200-240 mg/dL Borderline >240 mg/dL High Risk Performed By: #### L 500.4050, L3100.5475, L101.9900, L501.6710, L501.9520, L505.7010, L501.1400, L500.4100, L100.0100 #### [facility] [address] [place], [address] Cholesterol in HDL [Mass/Vol] 37 mg/dL Low [facility] Comment on above: Order Comment: Order Date: 03/20/24 Order Info: 07 - CMP Order Info: - LIPID Order Info: 3083-07 - URIC Order Info: [id number] - CRP Order Info: 3 - TSH Order Info: [id number] - RA Result Comment: The drugs N-Acetylcysteine and Metamizole may falsely depress this assay. Reference Range HDL <40 mg/dL Low HDL Cholesterol HDL >or= 60 mg/dL High HDL Cholesterol Performed By: #### L 500.4050, L3100.5475, L101.9900, L501.6710, L501.9520, L505.7010, L501.1400, L500.4100, L100.0100 #### [facility] [address] [place], [address] Cholesterol in LDL [Mass/Vol] 75 mg/dL Normal 0-130 [facility] Comment on above: Order Comment: Order Date: 03/20/24 Order Info: 785-07 - CMP Order Info: - LIPID Order Info: 3083-07 - URIC Order Info: 94225-8 - CRP Order Info: 3015-09 - TSH Order Info: 22650-8 - RA Performed By: #### L 500.4050, L3100.5475, L101.9900, L501.6710, L501.9520, L505.7010, L501.1400, L500.4100, L100.0100 #### [facility] [address] [place], [place], [id number] ([phone]) Cholesterol in VLDL [Mass/Vol] 37 mg/dL Normal 5-40 [facility] Comment on above: Order Comment: Order Date: 03/20/24 Order Info: [id number] - CMP Order Info: - LIPID Order Info: [id number] - URIC Order Info: - CRP Order Info: [id number] - TSH Order Info: - RA Performed By: #### L 500.4050, L3100.5475, L101.9900, L501.6710, L501.9520, L505.7010, L501.1400, L500.4100, L100.0100 #### [facility] [address] [place], [place], [address] ([phone]) Triglyceride [Mass/Vol] 183 mg/dL Normal [facility] Comment on above: Order Comment: Order Date: 03/20/24 Order Info: [id number] - CMP Order Info: - LIPID Order Info: [id number] - URIC Order Info: [id number] - CRP Order Info: [id number] - TSH Order Info: [id number] - RA Result Comment: The drugs N-Acetylcysteine and Metamizole may falsely depress this assay. Serum Triglycerides Reference Interval Normal <150 mg/dL Borderline high 150 - 199 mg/dL High 200 - 499 mg/dL Very High > or = 500 mg/dL Performed By: #### L 500.4050, L3100.5475, L101.9900, L501.6710, L501.9520, L505.7010, L501.1400, L500.4100, L100.0100 #### [facility] [address] [place], [address] Rheumatoid Factoron 03-25-20 24 RHEUMATOID FAC < 10.0 Normal <15 [facility] Comment on above: Order Comment: Order Date: 03/20/24 Order Info: 785- - CMP Order Info: - LIPID Order Info: 1 - URIC Order Info: [id number] - CRP Order Info: 3016-3 - TSH Order Info: [id number] - RA Performed By: #### L 500.4050, L3100.5475, L101.9900, L501.6710, L501.9520, L505.7010, L501.1400, L500.4100, L100.0100 #### [facility] [address] [place], [place], [id number] Thyroid Stim Hormone (TSH)on 03-25-2024 TSH 0.716 uIU/mL Normal 0.358-3.740 [facility] Comment on above: Order Comment: Order Date: 03/20/24 Order Info: [id number] - CMP Order Info: - LIPID Order Info: [id number] - URIC Order Info: [id number] - CRP Order Info: 3 - TSH Order Info: [id number] - RA Performed By: #### L 500.4050, L3100.5475, L101.9900, L501.6710, L501.9520, L505.7010, L501.1400, L500.4100, L100.0100 #### [facility] [address] [place], [address] Uric Acidon 03-25-2024 URIC 7.5 mg/dL High 3.5-7.2 [facility] Comment on above: Order Comment: Order Date: 03/20/24 Order Info: [id number] - CMP Order Info: - LIPID Order Info: 1 - URIC Order Info: [id number] - CRP Order Info: [id number] - TSH Order Info: [id number] - RA Result Comment: The drugs N-Acetylcysteine and Metamizole may falsely depress this assay. Performed By: #### L 500.4050, L3100.5475, L101.9900, L501.6710, L501.9520, L505.7010, L501.1400, L500.4100, L100.0100 #### [facility] [address] [place], [address] Basophil percentageOrdered B y: Lion Marrero on 06-07-2023 Bilirubin [Mass/Vol] 0.80 mg/dL 0.20-1.00 [facility] Comment on above: For patients on eltr ombopag therapy, use of Dimension [place] TBIL is not recommended. Chloride [Moles/Vol] 105 mmol/L 98-107 [facility] Cholesterol [Mass/Vol] 199 mg/dL <200 [facility] Comment on above: <200 mg/dL Desirable 200-240 mg/dL Borderline >240 mg/dL High Risk Glucose [Mass/Vol] 104 mg/dL 74-106 [facility] Comment on above: Fasting Glucose resu lt from 100 to 125 mg/dL suggests IMPAIRED HOMEOSTASIS per A.D.A. criteria. Potassium [Moles/Vol] 3.9 mmol/L 3.5-5.1 [facility] Protein [Mass/Vol] 7.5 g/dL 6.4-8.2 [facility] Sodium [Moles/Vol] 140 mmol/L 136-145 [facility] Triglyceride [Mass/Vol] 352 mg/dL <199 [facility] Comment on above: The drugs N-Acetylcy steine and Metamizole may falsely depress this assay.Serum Triglycerides Reference Interval Normal <150 mg/dL Borderline high 150 - 199 mg/dL High 200 - 499 mg/dL Very High > or = 500 mg/dL Comprehensive Metabolic Prof ilon 06-07-2023 Albumin [Mass/Vol] 4.0 g/dL Normal 3.2-5.0 [facility] Comment on above: Order Comment: Order Date: 06/05/23 Order Info: 86-1 - CMP Order Info: [id number] - LIPID Order Info: 301-3 - TSH Performed By: #### L 501.9520, L500.4100 #### [facility] [address] [place], [address] Albumin/Globulin [Mass ratio] 1.1 {ratio} Normal 0.9-2.4 [facility] Comment on above: Order Comment: Order Date: 06/05/23 Order Info: 86-1 - CMP Order Info: [id number] - LIPID Order Info: [id number] - TSH Performed By: #### L 501.9520, L500.4100 #### [facility] [address] [place], [address] ALK P 49 U/L Normal 45-117 [facility] Comment on above: Order Comment: Order Date: 06/05/23 Order Info: 86-1 - CMP Order Info: [id number] - LIPID Order Info: 3 - TSH Performed By: #### L 501.9520, L500.4100 #### [facility] [address] [place], [address] ALT [Catalytic activity/Vol] 41 U/L Normal 16-61 [facility] Comment on above: Order Comment: Order Date: 06/05/23 Order Info: 86-1 - CMP Order Info: [id number] - LIPID Order Info: [id number] - TSH Performed By: #### L 501.9520, L500.4100 #### [facility] [address] [place], [address] AST [Catalytic activity/Vol] 24 U/L Normal 15-37 [facility] Comment on above: Order Comment: Order Date: 06/05/23 Order Info: 86-1 - CMP Order Info: [id number] - LIPID Order Info: [id number] - TSH Performed By: #### L 501.9520, L500.4100 #### [facility] [address] [place], [address] Bilirubin [Mass/Vol] 0.80 mg/dL Normal 0.20-1.00 [facility] Comment on above: Order Comment: Order Date: 06/05/23 Order Info: 785- - CMP Order Info: - LIPID Order Info: [id number] - TSH Result Comment: For patients on eltrombopag therapy, use of Dimension [place] TBIL is not recommended. Performed By: #### L 501.9520, L500.4100 #### [facility] [address] [place], [address] BUN/CRE 9.8 RATIO Low 10-20 [facility] Comment on above: Order Comment: Order Date: 06/05/23 Order Info: [id number] - CMP Order Info: - LIPID Order Info: [id number] - TSH Performed By: #### L 501.9520, L500.4100 #### [facility] [address] [place], [address] CA,Total 9.3 mg/dL Normal 8.5-10.1 [facility] Comment on above: Order Comment: Order Date: 06/05/23 Order Info: [id number] - CMP Order Info: - LIPID Order Info: [id number] - TSH Performed By: #### L 501.9520, L500.4100 #### [facility] [address] [place], [address] Chloride [Moles/Vol] 105 mmol/L Normal 98-107 [facility] Comment on above: Order Comment: Order Date: 06/05/23 Order Info: 785- - CMP Order Info: - LIPID Order Info: [id number] - TSH Performed By: #### L 501.9520, L500.4100 #### [facility] [address] [place], [address] CO2 [Moles/Vol] 31.0 mmol/L Normal 21.0-32.0 [facility] Comment on above: Order Comment: Order Date: 06/05/23 Order Info: [id number] - CMP Order Info: - LIPID Order Info: [id number] - TSH Performed By: #### L 501.9520, L500.4100 #### [facility] [address] [place], [address] Creatinine [Mass/Vol] 1.12 mg/dL Normal 0.70-1.30 [facility] Comment on above: Order Comment: Order Date: 06/05/23 Order Info: [id number] - CMP Order Info: - LIPID Order Info: [id number] - TSH Result Comment: The validity of the calculated GFR GFRAA in patients over 70 years has not been determined. Clinical correlation is essential. Performed By: #### L 501.9520, L500.4100 #### [facility] [address] [place], [address] EST GFR - AA 91 mL/min Normal >60 [facility] Comment on above: Order Comment: Order Date: 06/05/23 Order Info: 785-07 - CMP Order Info: - LIPID Order Info: [id number] - TSH Result Comment: Afri can [place] GFR Calc Performed By: #### L 501.9520, L500.4100 #### [facility] [address] [place], [address] GAP 4 Low 5-15 [facility] Comment on above: Order Comment: Order Date: 06/05/23 Order Info: [id number] - CMP Order Info: - LIPID Order Info: [id number] - TSH Performed By: #### L 501.9520, L500.4100 #### [facility] [address] [place], [address] GFR/1.73 sq M.predicted among non-blacks MDRD (S/P/Bld) [Vol rate/Area] 75 mL/min/{1.73_m2} Normal >60 [facility] Comment on above: Order Comment: Order Date: 06/05/23 Order Info: [id number] - CMP Order Info: - LIPID Order Info: [id number] - TSH Result Comment: Non- GFR Calc Performed By: #### L 501.9520, L500.4100 #### [facility] [address] [place], [address] Globulin (S) [Mass/Vol] 3.5 g/dL Normal 2.2-4.2 [facility] Comment on above: Order Comment: Order Date: 06/05/23 Order Info: [id number] - CMP Order Info: - LIPID Order Info: [id number] - TSH Performed By: #### L 501.9520, L500.4100 #### [facility] [address] [place], [address] Glucose [Mass/Vol] 104 mg/dL Normal 74-106 [facility] Comment on above: Order Comment: Order Date: 06/05/23 Order Info: 785-07 - CMP Order Info: - LIPID Order Info: [id number] - TSH Result Comment: Fast ing Glucose result from 100 to 125 mg/dL suggests IMPAIRED HOMEOSTASIS per A.D.A. criteria. Performed By: #### L 501.9520, L500.4100 #### [facility] [address] [place], [address] Potassium [Moles/Vol] 3.9 mmol/L Normal 3.5-5.1 [facility] Comment on above: Order Comment: Order Date: 06/05/23 Order Info: 07 - CMP Order Info: [id number] - LIPID Order Info: [id number] - TSH Performed By: #### L 501.9520, L500.4100 #### [facility] [address] [place], [address] Sodium [Moles/Vol] 140 mmol/L Normal 136-145 [facility] Comment on above: Order Comment: Order Date: 06/05/23 Order Info: 0786-1 - CMP Order Info: [id number] - LIPID Order Info: [id number] - TSH Performed By: #### L 501.9520, L500.4100 #### [facility] [address] [place], [address] T PROT 7.5 g/dL Normal 6.4-8.2 [facility] Comment on above: Order Comment: Order Date: 06/05/23 Order Info: 0786- - CMP Order Info: [id number] - LIPID Order Info: [id number] - TSH Performed By: #### L 501.9520, L500.4100 #### [facility] [address] [place], [address] Urea nitrogen [Mass/Vol] 11 mg/dL Normal 7-18 [facility] Comment on above: Order Comment: Order Date: 06/05/23 Order Info: 0786-1 - CMP Order Info: [id number] - LIPID Order Info: [id number] - TSH Performed By: #### L 501.9520, L500.4100 #### [facility] [address] [place], [address] Laboratory - Chemistry and C hemistry - challengeOrdered By: Lion Marrero on 06-07-2023 ALP [Catalytic activity/Vol] 49 U/L 45-117 [facility] ALT [Catalytic activity/Vol] 41 U/L 16-61 [facility] CO2 [Moles/Vol] 31.0 mmol/L 21.0-32.0 [facility] Globulin (S) [Mass/Vol] 3.5 g/dL 2.2-4.2 [facility] Urea nitrogen/Creatinine [Mass ratio] 9.8 mg/mg 10-20 [facility] Lipid Profileon 06-07-2023 Cholesterol [Mass/Vol] 199 mg/dL Normal 200 [facility] Comment on above: Order Comment: Order Date: 06/05/23 Order Info: 0786- - CMP Order Info: [id number] - LIPID Order Info: [id number] - TSH Result Comment: <200 mg/dL Desirable 200-240 mg/dL Borderline >240 mg/dL High Risk Performed By: #### L 501.9520, L500.4100 #### [facility] [address] [place], [address] Cholesterol in HDL [Mass/Vol] 37 mg/dL Low [facility] Comment on above: Order Comment: Order Date: 06/05/23 Order Info: 07 - CMP Order Info: - LIPID Order Info: [id number] - TSH Result Comment: The drugs N-Acetylcysteine and Metamizole may falsely depress this assay. Reference Range HDL <40 mg/dL Low HDL Cholesterol HDL >or= 60 mg/dL High HDL Cholesterol Performed By: #### L 501.9520, L500.4100 #### [facility] [address] [place], [address] Cholesterol in LDL [Mass/Vol] 92 mg/dL Normal 0-130 [facility] Comment on above: Order Comment: Order Date: 06/05/23 Order Info: 0786 - CMP Order Info: [id number] - LIPID Order Info: [id number] - TSH Performed By: #### L 501.9520, L500.4100 #### [facility] [address] [place], [address] Cholesterol in VLDL [Mass/Vol] 70 mg/dL High 5-40 [facility] Comment on above: Order Comment: Order Date: 06/05/23 Order Info: 0786 - CMP Order Info: [id number] - LIPID Order Info: [id number] - TSH Performed By: #### L 501.9520, L500.4100 #### [facility] [address] [place], [address] Triglyceride [Mass/Vol] 352 mg/dL High [facility] Comment on above: Order Comment: Order Date: 06/05/23 Order Info: 0786-1 - CMP Order Info: [id number] - LIPID Order Info: [id number] - TSH Result Comment: The drugs N-Acetylcysteine and Metamizole may falsely depress this assay. Serum Triglycerides Reference Interval Normal <150 mg/dL Borderline high 150 - 199 mg/dL High 200 - 499 mg/dL Very High > or = 500 mg/dL Performed By: #### L 501.9520, L500.4100 #### [facility] [address] [place], [address] No Panel InformationOrdered By: Lion Marrero on 06-07-2023 Estimated GFR (MDRD) Amer 91 mL/min >60 [facility] Comment on above: GFR Calc Estimated GFR (MDRD) Non-Af Amer 75 mL/min >60 [facility] Comment on above: Non- GFR Calc Thyroid Stimulating Hormone (TSH) 1.57 uIU/mL 0.358-3.74 [facility] Serum or plasma albumin katie urement (mass/volume)Ordered By: Lion Marrero on 06-07-2023 Albumin [Mass/Vol] 4.0 g/dL 3.2-5.0 [facility] Serum or plasma albumin/glob ulin mass ratioOrdered By: Lion Marrero on 06-07-2023 Albumin/Globulin [Mass ratio] 1.1 {ratio} 0.9-2.4 [facility] Serum or plasma calcium katie urement (mass/volume)Ordered By: Lion Marrero on 06-07-2023 Calcium [Mass/Vol] 9.3 mg/dL 8.5-10.1 [facility] Serum or plasma cholesterol in HDL measurement (mass/volume)Ordered By: Lion Marrero on 06-07-2023 Cholesterol in HDL [Mass/Vol] 37 mg/dL >40 [facility] Comment on above: The drugs N-Acetylcy steine and Metamizole may falsely depress this assay. Reference Range HDL <40 mg/dL Low HDL Cholesterol HDL >or= 60 mg/dL High HDL Cholesterol Serum or plasma cholesterol in VLDL measurement (mass/volume)Ordered By: Lion Marrero on 06-07-2023 Cholesterol in VLDL [Mass/Vol] 70 mg/dL 5-40 [facility] Serum or plasma creatinine m easurement (mass/volume)Ordered By: Lion Marrero on 06-07-2023 Creatinine [Mass/Vol] 1.12 mg/dL 0.70-1.30 [facility] Comment on above: The validity of the calculated GFR & GFRAA in patients over 70 years has not been determined. Clinical correlation is essential. Serum or plasma low density lipoprotein (LDL) cholesterol measurement (mass/volume)Ordered By: Lion Marrero on 06-07-2023 Cholesterol in LDL [Mass/Vol] 92 mg/dL 0-130 [facility] Serum or plasma urea nitroge n measurement (mass/volume)Ordered By: Lion Marrero on 06-07-2023 Urea nitrogen [Mass/Vol] 11 mg/dL 7-18 [facility] Thin prep Papanicolaou smear with manual screeningOrdered By: Lion Marrero on 06-07-2023 Thin prep Papanicolaou smear with manual screening 24 U/L 15-37 [facility] Thin prep Papanicolaou smear with manual screening 4 5-15 [facility] Thyroid Stim Hormone (TSH)on 06-07-2023 TSH 1.57 uIU/mL Normal 0.358-3.74 [facility] Comment on above: Order Comment: Order Date: 06/05/23 Order Info: [id number] - CMP Order Info: [id number] - LIPID Order Info: [id number] - TSH Performed By: #### L 501.9520, L500.4100 #### [facility] [address] [place], [address] Basophil percentageon 2021 Bilirubin [Mass/Vol] 0.60 mg/dL 0.20-1.00 [facility] Work Phone: Comment on above: For patients on eltr ombopag therapy, use of Dimension [place] TBIL is not recommended. Cholesterol [Mass/Vol] 197 mg/dL <200 [facility] Work Phone: Comment on above: <200 mg/dL Desirable 200-240 mg/dL Borderline >240 mg/dL High Risk Protein [Mass/Vol] 7.6 g/dL 6.4-8.2 [facility] Work Phone: [phone] Triglyceride [Mass/Vol] 604 mg/dL <199 [facility] Work Phone: Comment on above: The drugs N-Acetylcy steine and Metamizole may falsely depress this assay. TRIGLYCERIDE IS GREATER THAN 400 mg/dL. LDL RESULT IS INVALID AND WILL NOT BE REPORTED.Serum Triglycerides Reference Interval Normal <150 mg/dL Borderline high 150 - 199 mg/dL High 200 - 499 mg/dL Very High > or = 500 mg/dL Direct bilirubinon Bilirubin.direct [Mass/Vol] 0.17 mg/dL 0.00-0.30 [facility] Work Phone: [phone] Laboratory - Chemistry and C hemistry - challengeon 05-29-2022 ALP [Catalytic activity/Vol] 49 U/L 45-117 [facility] Work Phone: [phone] ALT [Catalytic activity/Vol] 54 U/L 16-61 [facility] Work Phone: [phone] Globulin (S) [Mass/Vol] 3.6 g/dL 2.2-4.2 [facility] Work Phone: [phone] Serum or plasma albumin katie urement (mass/volume)on 05-29-2022 Albumin [Mass/Vol] 4.0 g/dL 3.2-5.0 [facility] Work Phone: [phone] Serum or plasma cholesterol in HDL measurement (mass/volume)on 05-29-2022 Cholesterol in HDL [Mass/Vol] 40 mg/dL >40 [facility] Work Phone: [phone] Comment on above: The drugs N-Acetylcy steine and Metamizole may falsely depress this assay. Reference Range HDL <40 mg/dL Low HDL Cholesterol HDL >or= 60 mg/dL High HDL Cholesterol Serum or plasma cholesterol in VLDL measurement (mass/volume)on 05-29-2022 Cholesterol in VLDL [Mass/Vol] TNP [facility] Work Phone: [phone] Comment on above: Test not performed Serum or plasma low density lipoprotein (LDL) cholesterol measurement (mass/volume)on 05-29-2022 Cholesterol in LDL [Mass/Vol] TNP [facility] Work Phone: Comment on above: Test not performed Thin prep Papanicolaou smear with manual screeningon 05-29-2022 Thin prep Papanicolaou smear with manual screening 32 U/L 15-37 [facility] Work Phone: CT CARDIAC SCORINGon 022 CT CARDIAC SCORING Patient Name: INA ARZOLA STUDY: CT CARDIAC SCORING; 11/22/2021 8:33 am INDICATION: 46-year-old man with hyperlipidemia presenting for evaluation. COMPARISON: None. ACCESSION NUMBER(S): [id number] ORDERING CLINICIAN: AGAPITO MARRERO TECHNIQUE: Using prospective ECG gating, CT scan of the coronary arteries was performed without intravenous contrast. Coronary calcium scoring was performed according to the method of Agatston. FINDINGS: The score and distribution of calcium in the coronary arteries is as follows: LM 0 LAD 0 LCx 0 RCA 0 Total 0 The visualized mid/lower ascending thoracic aorta measures 2.7 cm in diameter. The heart is normal in size. No pericardial effusion is present. No gross evidence of mediastinal or hilar lymphadenopathy or masses is identified. 5 mm subpleural nodularity posterior right lower lobe image 35. Mild patchy bibasilar infiltrates and/or atelectasis.. There is a benign subcentimeter calcified granuloma within the right lower lobe. Small hiatal hernia. Suspected fatty liver. Low-density hepatic lesions measuring up to 8 mm left hepatic lobe which are indeterminate but probably of benign etiology. Mild bilateral gynecomastia. IMPRESSION: 1. Coronary artery calcium score of 0*. 2. Subcentimeter right lung nodule as described, likely benign. No further follow-up is required, however, if the patient has high risk factors for primary lung malignancy, follow-up noncontrast CT scan chest in 12 months may be obtained. (Layo Worrell et al., Guidelines for management of incidental pulmonary nodules detected on CT images: From the Fleischner Society 2017, Radiology. 2017 Vlad;284 (1):228-243.) [email or web address] 3. Additional findings as above. *Coronary artery calcium scoring may be helpful in predicting the risk for future coronary heart disease events. According to the [place] [employer] Foundation Clinical Expert Consensus Task Force, such testing provides important prognostic information in patients with more than one coronary heart disease risk factor. The coronary artery calcium score correlates with the annual risk of a non-fatal myocardial infarction or coronary heart disease . Coronary artery score Annual Risk 0-99 0.4% 100-399 1.3% >400 2.4% These three breakpoints correspond to lower, intermediate and high risk states for future coronary events. Such information should be used, along with appropriate clinical judgment, to make decisions regarding the intensity of risk factor management strategies to treat blood lipids and to modify other non-lipid coronary risk factors. Reference: Kent P et al. Circulation. 2007; 115:402-426 Electronically signed by: DO Clarisa BRUCE [facility] Encounters Encounter Date Encounter Type Care Provider Facility Start: 03-25-2024 End: 03-25-2024 ambulatory [facility] Facility:[facility] Start: 06-07-2023 End: 06-07-2023 ambulatory [facility] Work Phone: Start: 06-07-2023 End: 06-07-2023 Patient encounter procedure [facility] Work Phone: Start: 06-07-2023 End: 06-07-2023 ambulatory [facility] Facility:[facility] Start: 05-29-2022 End: 05-29-2022 ambulatory [facility] Work Phone: Start: 05-29-2022 End: 05-29-2022 Patient encounter procedure [facility] Payers Date Payer Category Payer Self-pay [id number] 2023 Unknown [id number] Unknown [facility] [id number] Unknown [id number] Unknown [id number] Social History Date Type Detail Facility [facility]: [facility] Start: 1975 Sex Assigned At Male [facility] Evaluation note Note Date & Type Note Facility Evaluation note No assessment information availa ble [facility] Work Phone: Summary Purpose Family History No Family History Records FoundNo Family History Records Found Advance Directives No Advanced Directives Records Found Advance Directive Response Recorded Date/ Time Living Will No March 08 10:51pm Power of Gauger Delivery No March 08 021 10:51pm Chief Complaint and Reason for Visit Chief Complaint EORDER Additional Source Comments (unrecognized sect ion and content) No Status Records FoundNo Status Records Found INFORMATION SOURCE (unrecogn ized section and content) DATE CREATED AUTHOR 11/27/2021 [facility] DATE CREATED AUTHOR AUTHOR'S ORGANIZ ATION 04/14/2024 [facility] Goals (unrecognized section and content) Goals may be documented in a n alternate sectionGoals may be documented in an alternate section Care Teams (unrecognized sec tion and content) Team Status: Active Member Role Status Dates Dr. Lion Marrero MD Family Provider Active Dr. Lion Marrero MD Primary Care Provider Activ e Team Status: Inactive Member Role Status Dates Dr. Lion Marrero MD Primary Care Provider, Attending Provider, Referring Provider Active FOR RECORDS PERTAINING TO PATIENTS WHO ARE OR HAVE BEEN ENROLLED IN A CHEMICAL DEPENDENCY/SUBSTANCEABUSE PROGRAM, SOME INFORMATION MAY BE OMITTED. This clinical summary was aggregated from multiple sources. Caution should be exercised in using it in the provision of clinical care. This summary normalizes information from multiple sources, and as a consequence, information in this document may materially change the coding, format and clinical context of patient data. In addition, data may be omitted in some cases. CLINICAL DECISIONS SHOULD BE BASED ON THE PRIMARY CLINICAL RECORDS. [facility] [employer] [facility]. provides no warranty or guarantee of the accuracy or completeness of information in this document.
[2025-01-16 10:19] LABS: Absolute Lymphocyte Count 1.51 X10^3/uL (0.83-4.51); Absolute Neutrophil Count 2.6 X10^3/uL (2.0-7.7); Basophil# 0.04 X10^3/uL; Basophil% 0.9 % (0-1); Eosinophil# 0.12 X10^3/uL; Eosinophils% 2.6 % (0-5); Hematocrit 43.4 % (40-54); Lymphocyte # 1.51 X10^3/ul (0.83-4.51); Lymphocyte % 32.1 % (19-41); Mean Corp Hgb Conc 34.6 g/dL (32-36); Mean Corpuscular Hgb 29.2 pg (27.0-32.0); Mean Corpuscular Volume 84.6 fL (80-94); Mean Platelet Vol. 10.2 fl (6.2-12.0); Monocyte# 0.42 X10^3/uL; Monocyte% 8.9 % (0-10); NRBC Flagged by Analyzer 0 % (0-5); Neutrophil # 2.55 X10^3/uL (2.7-7.7); Neutrophil % 54.2 % (47-70); Platelet Count 200 K/mm3 (150-450); RBC Distribution Width CV 12.3 % (11.6-14.6); RBC Distribution Width SD 37.7 fl (35.1-43.9); Red Blood Count 5.13 M/mm3 (4.6-6.2); White Blood Count 4.7 K/mm3 (4.4-11.0)
[2025-01-16 11:03] LABS: ALB/GLOB Ratio 1.8 RATIO (0.9-2.4); AST(SGOT) 25 U/L (<=37); Alanine Aminotransfer ALT/SGPT 40 U/L (<=46); Albumin, Serum 4.5 g/dL (3.5-5.0); Alkaline Phosphatase 44 U/L (40-129); Anion Gap 11 (5-15); BUN 13 mg/dL (4-19); BUN/Creat Ratio 13.1 RATIO (10-20); Calcium,Total 9.4 mg/dL (7.6-11.0); Carbon Dioxide 26.1 mmol/L (21.0-32.0); Chloride 104 mmol/L (98-108); Creatinine, Serum 0.97 mg/dL (0.70-1.20); EST Glomerular Filtration Rate 97 (>60); Globulin 2.5 g/dL (2.2-4.2); Glucose 100 mg/dL (70-99); Potassium 4.3 mmol/L (3.3-5.1); Sodium Level 141 mmol/L (133-145); Total Bilirubin 0.48 mg/dL (0.00-1.30); Vitamin B12 687 pg/mL (180-914); Vitamin D,25 Hydroxy 12.4 ng/mL (30-100)
== END | disposition home or self-care (01) ==
LOC: MTLAB 07:00
PROVIDERS: PCP Family Medicine; Referring Provider Family Medicine; Visit Provider Family Medicine
DX: R53.83 Other fatigue (principal)
CPT/HCPCS: 36415; 80053; 82306; 82607; 84403; 84443; 85025

== ENCOUNTER → 2025-04-29 | Outpatient (CLI) | payer BC, SELFPAY ==
[2025-04-29 11:30] LABS: Vitamin D,25 Hydroxy 16.7 ng/mL (30-100)
== END | disposition home or self-care (01) ==
LOC: MTLAB 07:08
PROVIDERS: PCP Family Medicine; Referring Provider Family Medicine; Visit Provider Family Medicine
DX: E55.9 Vitamin D deficiency, unspecified (principal)
CPT/HCPCS: 36415; 82306

== ENCOUNTER → 2025-06-15 | Outpatient (CLI) | payer BC, SELFPAY ==
[2025-06-15 11:20] LABS: Cholesterol 184 mg/dL (<=200); Low Density Lipoprotein Calc. 86 mg/dL; Triglycerides 389 mg/dL; Very Low Density Lipoprotein 78 mg/dL (5-40); cholesterol:hdl ratio screen 5.35
== END | disposition home or self-care (01) ==
LOC: MFPLAB 08:54
PROVIDERS: PCP Family Medicine; Visit Provider Family Medicine
DX: E78.5 Hyperlipidemia, unspecified (principal)
CPT/HCPCS: 36415; 80061